=== PATIENT | male | born 1960 | race African-American/Black ===

== ENCOUNTER 2024-11-18 07:55 | Day surgery (SDC) | payer OTHER, SELFPAY ==
--- NOTE | 2024-10-28 09:17 | HPS.HSE ---
Family Physician
-
Family Physician: NOT KNOW UNKNOWN - PT DOES
Chief Complaint
-
Paroxysmal atrial fibrillation. Typical atrial flutter.
History of Present Illness
The patient is a 64-year-old male presenting today for paroxysmal atrial fibrillation. He also has underlying typical atrial flutter as confirmed by an EKG in August 2024. The patient reports fatigue and occasional palpitations associated with his
atrial arrhythmias. He previously underwent a CLAIR-guided cardioversion in February 2024 secondary to his atrial fibrillation. He is on current pharmacological therapy with Diltiazem and Metoprolol Succinate. He reports he has been compliant with Xarelto
for oral anticoagulation. He notes that his symptoms associated with his atrial arrhythmias greatly interfere with his activities of daily living and overall impact his quality of life. He is interested in pursuing with pulmonary vein isolation and
atrial flutter ablation for further arrhythmia management. He denies any current complaints today such as chest pain and shortness of breath at rest, nausea, vomiting, diarrhea, lightheadedness, dizziness, cough, sore throat, or fever.
Medical History
Past Medical History
Past Medical History: Reports Other
Additional Past Medical History:
1. Paroxysmal atrial fibrillation, status post CLAIR-guided cardioversion 02/2024; pharmacological therapy with Diltiazem and Metoprolol Succinate, oral anticoagulation with Xarelto.
2. Typical atrial flutter.
3. Hypertension.
4. Dyslipidemia.
5. Chronic diastolic heart failure.
6. Ectasia of ascending thoracic aorta, 4.5 cm.
7. Obstructive sleep apnea, compliant with CPAP.
8. Chronic dyspnea on exertion.
9. GERD.
10. Remote migraines.
11. Peripheral neuropathy.
12. Degenerative disc disease.
13. Scoliosis.
14. Multinodular thyroid.
15. Morbid obesity, BMI 45.6.
16. Remote history of tobacco abuse.
Past Surgical History: Reports Cardiac (CLAIR-guided cardioversion. )
Social History
Tobacco: Former Smoker (He is a former 1 pack per day cigarette smoker who quit tobacco altogether 10 years ago. )
Alcohol: Occasional
Personal:
Living: Other (He lives with his in a 1st floor apartment. )
Family History
Family History: Not pertinent
Allergies / Home Medications
Allergy/Medication List:
Home medications:
1. Atorvastatin 20 mg p.o. every evening.
2. Diltiazem HCl 240 mg p.o. daily.
3. Furosemide 80 mg p.o. daily.
4. Gabapentin 100 mg p.o. three times a day.
5. Metoprolol Succinate 50 mg p.o. twice a day.
6. Xarelto 20 mg p.o. every evening.
7. Losartan 100 mg p.o. every evening.
Allergies: No known allergies.
Review of Systems
-
A 12 point ROS was completed and negative except as noted: Yes
Physical Exam
Vital Signs
Blood pressure 141.98. Heart rate 76. Respirations 18. Pulse ox 99% on room air.
Height 5 feet, 9 inches. Weight 140.1 kg. BMI 45.6.
Physical Exam
General: Well Developed, Well Nourished and No Apparent Distress
HEENT: NormoCephalic, Moist mucous membranes, Atraumatic and PERRLA
Respiratory: Clear
Cardiac: Irregular Rhythm
GI: Soft, Non Tender, Non Distended and Other (Morbidly obese. )
Musculoskeletal: Normal Gait & Station
Skin: Warm and Dry
Neuro: AO x 3 and Nonfocal/grossly intact
Laboratory Results
-
DIAGNOSTIC STUDIES as of 10/28/2024: White blood cell count 7.1. Hemoglobin 14.6. Platelet count 156,000. PT 19.0. INR 1.57. Sodium 139. Potassium 4.1. BUN 16. Creatinine 0.9. Glucose 106. Calcium 9.2. Magnesium 2.0. AST 24. ALT 33. Albumin 4.2.
Type and screen O positive.
EKG 10/28/2024: Atrial fibrillation. Moderate voltage criteria for left ventricular hypertrophy, may be normal variant. ST and T wave abnormality, consider lateral ischemia.
Chest CT 10/28/2024: Normal, conventional pulmonary venous anatomy. Incomplete filling of the anterior aspect of the left atrial appendage, but no thrombus definitively identified. Ectatic ascending thoracic aorta measuring 4.5 cm in diameter.
Multinodular thyroid gland with large bilateral thyroid nodules for which a follow-up thyroid ultrasound is recommended if not previously performed.
Impression/Plan
-
IMPRESSION/PLAN:
1. Paroxysmal atrial fibrillation and typical atrial flutter: The patient is in need of pulmonary vein isolation and atrial flutter ablation with Dr. Sanchez Werner on 11/18/2024. The benefits and risks of the procedure have been explained to the
patient. The patient understands these risks and wishes to proceed. He will not be required to undergo a pre-procedural transesophageal echocardiogram as he has been compliant with his home oral anticoagulation. He is aware to continue his Xarelto
uninterrupted prior to his procedure. He will take no medications the morning of his ablation.
2. Multinodular thyroid gland on pre-ablation chest CT: The patient was notified of his results through phone call 10/31/2024. A copy of his chest CT has been forwarded to his primary care physician, Dr. Joseph Santoyo, for further follow-up and
management. A dedicated thyroid ultrasound has been recommended.
[2024-10-28 10:01] VITALS: BMI 45.6
[2024-10-28 10:33] LABS: % Basophils 0.1 % (0-2); % Eosinophils 2.4 % (0-6); % Immature Granulocytes 0.3 % (0-0.5); % Lymphocytes 15.9 % (20.5-51.1); % Neutrophils 71.3 % (42.2-75.2); Absolute Eosinophils 0.2 10^3/uL (0-0.7); Absolute Lymphocytes 1.1 10^3/uL (1.2-3.4); Absolute Monocytes 0.7 10^3/uL (0.1-0.6); Absolute Neutrophils 5.1 10^3/uL (1.4-6.5); Hemoglobin 14.6 g/dL (13.0-18.0); Mean Corp Hgb Conc. 31.1 g/dL (33.0-37.0); Mean Corpuscular Hgb 25.1 pg (27.0-31.0); Mean Corpuscular Volume 80.8 fL (80.0-94.0); Mean Platelet Volume 10.5 fL (7.4-10.4); Nucleated Red Blood Cells % 0 % (-); Platelet Count 156 10^3/uL (130-400); Red Blood Cell Count 5.82 10^6/uL (4.70-6.10); Red Cell Dist. Width 15.8 % (11.5-14.5); White Blood Cell Count 7.1 10^3/uL (4.8-10.8)
[2024-10-28 10:46] LABS: ALT (SGPT) 33 U/L (0-50); AST (SGOT) 24 U/L (17-59); Albumin 4.2 g/dl (3.5-5.0); Alkaline Phosphatase 114 U/L (38-126); Blood Urea Nitrogen 16 mg/dl (9-20); Calcium 9.2 mg/dl (8.4-10.2); Carbon Dioxide 33 mmol/L (22-30); Chloride 100 mmol/L (98-107); Estimated Creatinine Clearance 117 ml/min; Glucose 106 mg/dl (70-99); Potassium 4.1 mmol/L (3.5-5.1); Sodium 139 mmol/L (135-145); Total Bilirubin 1.2 mg/dl (0.2-1.3); Total Protein 7.2 g/dl (6.3-8.2); eGFR > 60.00
[2024-10-28 10:49] LABS: INR 1.57
[2024-11-18] VITALS (10 sets, daily range): BP systolic 115–149; BP diastolic 68–101; BMI 45.6
[2024-11-18 11:29] LABS: ACT-LR - POC 343 Seconds (116-155)
[2024-11-18 11:45] LABS: ACT-LR - POC 360 Seconds (116-155)
--- NOTE | 2024-11-18 12:09 | ITS.CL.ABL ---
Technical Administrative Assistant - Ablation
Ablation
Procedure Report:
ELECTROPHYSIOLOGY ABLATION STUDY
DATE:: November 18, 2024�����������������������������REFERRING: Dr. Timbo Damon
INDICATION: High burden paroxysmal atrial fibrillation and recently persistent atrial fibrillation. Some of his tracings suggest a more organized arrhythmia positive throughout the precordium and negative in 2 3 and F potentially left atrial
flutter. He presents today in atrial fibrillation
HISTORY: See H and P.��As above
ANTIARRHYTHMIC DRUG: Metoprolol and diltiazem
PRE-PROCEDURE CLAIR: No atrial thrombus and intracardiac ultrasound
PRESENTING RHYTHM: Atrial fibrillation
'TIME-OUT':��called and confirmed.
SEDATION/ANESTHESIA:��provided via the anesthesia department using general anesthesia (LMA).
INTRAVENOUS/ARTERIAL ACCESS:
Right femoral venous - 8Fr
Left femoral venous - 8 Fr, 6 Fr
Left femoral arterial - 5 Fr
Ultrasound guidance for bilateral femoral vein access was utilized by me to obtain access with demonstration of normal anatomy
CHADS-VASC Score:
HAS-Bled Score
PROCEDURE:
1.��A decapolar CS catheter was placed within the CS for mapping and pacing.��This was also used as the reference catheter for the 3-D map.
2. The intracardiac ultrasound catheter was positioned in the RA to identify the FO for targeting of transseptal puncture, assist��in identification of the pulmonary vein ostia, monitoring pre and post ablation pulmonary vein flow velocities,
monitoring for 'bubble' formation during RF application as a sign of thermal injury,��and to monitor for pericardial effusion during mapping and ablation procedure.���Left atrial size, LV ejection fraction, and pulmonary vein flows were monitored
pre and post ablation procedure. The other valves were inspected and found to be free of significant regurgitation or stenosis.
3.��Half of the calculated heparin bolus was administered prior to the first transeptal puncture.��Transseptal puncture was performed to diagnose RA and LA pressure so that safetey of LA mapping and ablation could be further assessed, and to access
the left atrium and pulmonary veins for mapping and ablation.��This entailed advancing an 10 [place] steerable with dilator into the superior vena cava and withdrawing both (monitoring intracardiac ultrasound, fluoroscopy and tip pressure) with the
tip oriented toward the atrial septum.��The fossa ovalis was engaged (indicated by sudden displacement of the sheath tip as well as tenting of the fossa seen on intracardiac ultrasound).��Left atrial access required a pass with the BrockenOptimusugh
needle extended.��Left atrial catheter position was confirmed by pressure monitoring (RA mean pressure 8 mm Hg and LA mean presure 14 mm Hg), LA saturation (99%),��as well as fluoroscopy.��The sheath was advanced over the dilator and positioned in
the left atrium.��This procedure was repeated for the Agilis sheath.��The remainder of the calculated heparin bolus was administered and heparin was
infused to maintain ACT at 300 -350 seconds throughout the case.
4.��RA pacing was performed via the proximal decapolar poles and LA pacing was performed via the distal decapolar poles.
5. A quadrapolar catheter was first positioned at the His position for His Bundle recording which was tagged via the 3-D Navex sytem, and then passed to the RVA for RV pacing and recording.
6. The PFA catheter was placed in each of the LIPV, LSPV, RSPV and the RIPV.��
7.��Next, a 3-D map was created using Navex.���A 3-D reconstructed CT image was compared to the 3-D Navex map to assist in anatomic interpretation, mapping and ablation.��The CT image and the NavX image were fused.
8. [place] ablation of the around the left and right veins was performed with a roofline and floor line and the posterior wall and substrate modification in the posterior wall proper. This led to entrance and exit block in all 4 pulmonary
veins and the posterior wall from the floor to the roof. Given the appearance of some organization of atrial arrhythmias on occasional ECGs from the office we then performed burst pacing from 350 ms down to 240 ms which was left atrial
refractoriness and from the right atrium as well from the decapolar catheter and the patient was noninducible for additional arrhythmias. Presumably the posterior wall lesions would interrupt any left atrial flutter mechanisms.
9. Normal sinus node and AV node function were noted. As above burst pacing down to atrial fractures from both atria did not demonstrate any other additional tachyarrhythmias.
TOTAL FLOURO TIME: 10.6 minutes 120 mGy
TOTAL RF DURATION: 0 minutes
REVERSAL OF HEPARIN: 35 mg of protamine, slow IV administration
COMPLICATIONS:
None
Intracardiac US shows no pericardial effusion post ablation.
SUMMARY:��
Complex left atrial mapping and ablation.
Isolation of the 4 pulmonary veins and the left atrial posterior wall as noted above.
RECOMMENDATIONS:
1. Out of bed and ambulate 4 hours
2. Resume anticoagulation
3.��Continue metoprolol and repeat echocardiogram in 3 months
4.��Outpatient follow-up as directed can consider same-day discharge
Copy to: Dr. Timbo Damon
[2024-11-18] MEDS: ANESTHETIC LOZENGE 1 LOZENGE PO (13:05)
--- NOTE | 2024-11-18 16:07 | W.PN.UPDATE ---
Update Note
Progress Note Update
64 yo male s/p PVI (same day). He denies cp, sob, neeta diet, mild sore throat, EKG SR, b/l groins c/d/i no HT, soft. He will resume Xarelto tonight after 6pm. He will stop diltiazem and continue metoprolol. Activity restrictions reviewed. He will f/u
Dr. Damon in 1 month. He is for d/c home after 5pm if groins stable.
SUMMARY:��
Complex left atrial mapping and ablation.
Isolation of the 4 pulmonary veins and the left atrial posterior wall as noted above.
RECOMMENDATIONS:
1. Out of bed and ambulate 4 hours
2. Resume anticoagulation
3.��Continue metoprolol and repeat echocardiogram in 3 months
4.��Outpatient follow-up as directed can consider same-day discharge
== END 2024-11-18 17:05 | disposition home or self-care (01) ==
LOC: CATH 07:55
PROVIDERS: ATTENDING PHYSICIAN Internal Medicine Cardiovascular Disease; OTHER PHYSICIAN Internal Medicine Cardiovascular Disease
DX: I48.19 Other persistent atrial fibrillation (principal); I48.3 Typical atrial flutter; R00.2 Palpitations; Z79.899 Other long term (current) drug therapy; I11.0 Hypertensive heart disease with heart failure; E78.5 Hyperlipidemia, unspecified; I77.810 Thoracic aortic ectasia; G47.33 Obstructive sleep apnea (adult) (pediatric); K21.9 Gastro-esophageal reflux disease without esophagitis; R06.09 Other forms of dyspnea; G62.9 Polyneuropathy, unspecified; M41.9 Scoliosis, unspecified; E04.2 Nontoxic multinodular goiter; E66.01 Morbid (severe) obesity due to excess calories; Z68.42 Body mass index [BMI] 45.0-49.9, adult; Z87.891 Personal history of nicotine dependence; I50.32 Chronic diastolic (congestive) heart failure; Z79.01 Long term (current) use of anticoagulants; I49.8 Other specified cardiac arrhythmias
CPT/HCPCS: C1894; C1730; C1766; C1892; C1759; C1733; 36415; 75572; 80053; 83735; 85025; 85347; 85610; 86850; 86900; 86901; 93005; 93656; 93657; Q9967